=== PATIENT | female | born 1955 | race Two or more races ===

== ENCOUNTER 2020-09-09 22:17 | Emergency (ER) | payer SELFPAY ==
[~2020-09-09] VITALS: Ht 147.3 cm; Wt 81.7 kg
[2020-09-10 00:14] LABS: BASOPHILS % (AUTO) 0 % (0-1); EOSINOPHILS % (AUTO) 3 % (1-7); LYMPHOCYTES % (AUTO) 44 % (22-44); MD NO; MEAN CORPUSCULAR HEMOGLOBIN 31.5 pg (27.0-34.8); MEAN PLATELET VOLUME 8.5 fL (7.4-10.4); MONOCYTES % (AUTO) 9 % (2-9); NEUTROPHILS % (AUTO) 44 % (42-75); PLATELET COUNT 219 x10^3/uL (130-400); RED BLOOD COUNT 4.27 x10^6/uL (3.82-5.3); RED CELL DISTRIBUTION WIDTH 13.9 % (9.6-15.2)
[2020-09-10 00:17] LABS: ALBUMIN 3.8 g/dL (3.4-5.0); ANION GAP 4 mmol/L (5-15); CALCIUM 8.9 mg/dL (8.5-10.1); CHLORIDE 107 mmol/L (98-107)
--- NOTE | 2020-09-10 00:19 | NUR ---
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
[2020-09-10 00:22] LABS: ALANINE AMINOTRANSFERASE 24 U/L (12-78); ALKALINE PHOSPHATASE 104 U/L (45-117); BILIRUBIN,TOTAL 0.2 mg/dL (0.2-1.0); CREATININE 0.59 mg/dL (0.55-1.02); TOTAL PROTEIN 7.8 g/dL (6.4-8.2)
--- NOTE | 2020-09-10 00:23 | NUR ---
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
[2020-09-10] MEDS ORDERED: ASPIRIN 81 MG TABLET CHEW PO ONE (01:00)
[2020-09-10] MEDS ORDERED: MORPHINE SULFATE 4 MG/ML, 1ML IVPush PRN (01:00)
--- NOTE | 2020-09-10 01:14 | NUR ---
PT HERE FOR ABD PAIN THAT RADIATES TO HEAD AND SHOULDER. VSS. TECH AT BEDSIDE FOR PIV. FAMILY AT BEDSIDE
[2020-09-10] MEDS ORDERED: MORPHINE SULFATE 4 MG/ML, 1ML ONE (01:23)
[2020-09-10] MEDS ORDERED: ASPIRIN 81 MG TABLET CHEW ONE (01:23)
[2020-09-10 01:29] LABS: TROPONIN I < 0.015 ng/mL (0.000-0.045)
[2020-09-10 03:22] VITALS: BP 125/71
--- NOTE | 2020-09-10 03:22 | NUR ---
Patient given discharge instructions and they have confirmed that they understand the instructions. Patient ambulatory with steady gait. NAD, all questions answered appropriately, denies additional needs at this time. No personal belongings left in room after discharge.
== END 2020-09-10 03:24 | disposition home or self-care (01) ==
LOC: ED 09-10 00:38
DX: R07.89 Other chest pain (principal); R10.12 Left upper quadrant pain
CPT/HCPCS: 36415; 71045; 76700; 80053; 83690; 83880; 84484; 85025; 85379; 93005; 96374; 99285; J2270